=== PATIENT | male | born 1990 | race Caucasian/White ===

== ENCOUNTER 2019-03-28 15:37 | Emergency (ER) | payer SELFPAY ==
[~2019-03-28] VITALS: Ht 177.8 cm; Wt 67.6 kg
[2019-03-28 15:54] VITALS: Ht 177.8 cm; Wt 67.6 kg
[2019-03-28 17:36] LABS: BASOPHIL % 0.2 % (0-2); RED CELL DISTRIBUTION WIDTH 13.4 % (11.5-14.5)
[2019-03-28 17:38] LABS: PLATELET COUNT 105 x10^3mcL (130-400)
[2019-03-28 17:40] LABS: CALCIUM 8.2 mg/dL (8.5-10.1); CARBON DIOXIDE 30.7 mmol/L (21-32); CHLORIDE SERUM 106 mmol/L (98-107); CREATININE SERUM 0.8 mg/dL (0.7-1.3); GFR1 > 60 mL/min; GLUCOSE SERUM 87 mg/dL (74-106); SODIUM SERUM 142 mmol/L (136-145)
[2019-03-28 17:45] LABS: ALKALINE PHOSPHATASE 57 U/L (46-116); ALT/SGPT 47 U/L (16-63); AST/SGOT 37 U/L (15-37); BILIRUBIN TOTAL 0.4 mg/dL (0.20-1.00); LIPASE 221 IU/L (73-393)
[2019-03-28 17:47] LABS: ALBUMIN 3.3 g/dL (3.4-5.0); TOTAL PROTEIN, SERUM 8.8 g/dL (6.4-8.2)
[2019-03-28 21:11] VITALS: BP 101/82
== END 2019-03-28 21:12 | disposition home or self-care (01) ==
LOC: ED 15:37
PROVIDERS: Student in an Organized Health Care Education/Training Program
DX: B07.8 Other viral warts (principal); K60.2 Anal fissure, unspecified; K64.4 Residual hemorrhoidal skin tags; Z86.73 Personal history of transient ischemic attack (TIA), and cerebral infarction without residual deficits
CPT/HCPCS: 36415